=== PATIENT | female | born 1970 | race Caucasian/White ===

== ENCOUNTER 2016-11-08 13:40 | Emergency (ER) | payer SELFPAY ==
[~2016-11-08 13:40] MED LIST: LEVAQUIN 750MG750 M1 PO; PREDNISONE10 MG PO
[2016-11-08] MEDS ORDERED: ADVIL 200MG TA200 MG PO (13:41)
[2016-11-08] MEDS ORDERED: GUAIFEN/CODEIN120 ML PO (16:18)
[2016-11-08] MEDS ORDERED: PREDNISONE20 M1 PO (16:18)
[2016-11-08] MEDS ORDERED: COMBIVENT RESPI1 SPR IH (16:18)
[2016-11-08] MEDS ORDERED: IPRATROPIUM BROM3 M1 IH (16:18)
[2016-11-08] MEDS ORDERED: DOXYCYCLINE MO100 M1 PO (16:18)
== END 2016-11-08 16:45 | disposition home or self-care (01) ==
LOC: ED 13:40
DX: J44.1 Chronic obstructive pulmonary disease with (acute) exacerbation (principal); F17.210 Nicotine dependence, cigarettes, uncomplicated; F12.10 Cannabis abuse, uncomplicated
CPT/HCPCS: J7512

== ENCOUNTER 2017-06-07 06:57 | Emergency (ER) | payer SELFPAY ==
[~2017-06-07] VITALS: Ht 154.9 cm; Wt 109.1 kg
[~2017-06-07 06:57] MED LIST changes: +ADVIL 200MG TA200 MG PO; +COMBIVENT RESPI1 SPR IH; +DOXYCYCLINE MO100 M1 PO; +GUAIFEN/CODEIN120 ML PO; +IPRATROPIUM BROM3 M1 IH; +PREDNISONE20 M1 PO
[2017-06-07 08:30] VITALS: BP 157/96
== END 2017-06-07 08:40 | disposition home or self-care (01) ==
LOC: ED 06:57
DX: J30.2 Other seasonal allergic rhinitis (principal); R06.2 Wheezing; H61.22 Impacted cerumen, left ear; J44.9 Chronic obstructive pulmonary disease, unspecified; F17.200 Nicotine dependence, unspecified, uncomplicated

== ENCOUNTER 2017-12-11 09:15 | Emergency (ER) | payer SELFPAY ==
[2017-12-11 09:55] LABS: EOS # 0.2 (0.04-0.40); EOS % 2.5 % (1.0-5.0); HEMATOCRIT 43.5 % (37.0-47.0); HEMOGLOBIN 13.9 g/dL (12.5-16.0); LYMPH# 1.5 (1.50-4.00); MEAN CELL VOLUME 94 fl (78-100); MEAN CORPUSCULAR HEMOGLOBIN 30 pg (27-31); MEAN CORPUSCULAR HGB CONC 32 g/dL (33-37); MEAN PLATELET VOLUME 10.6 fl (7.4-10.4); MONO # 0.5 (0.20-0.80); NEU # 5.5 (1.40-6.50); PLATELET COUNT 176 K/mm3 (130-400); RED BLOOD COUNT 4.61 M/mm3 (4.10-5.30); RED CELL DISTRIBUTION WIDTH 13.1 % (11.5-14.5); WHITE BLOOD COUNT 7.7 K/mm3 (4.8-10.8)
[2017-12-11 10:06] LABS: BUN/CREATININE RATIO 20.7 (6.0-26.0); CALCIUM 9.2 mg/dL (8.4-10.2)
[2017-12-11 10:15] LABS: URINE APPEARANCE CLEAR; URINE COLOR YELLOW; URINE PROTEIN(semi-quant) TRACE mg/dL (NEGATIVE)
[2017-12-11 10:16] LABS: URINE BILIRUBIN NEGATIVE (NEGATIVE); URINE BLOOD 50 ery/uL (NEGATIVE); URINE GLUCOSE NEGATIVE (NEGATIVE); URINE KETONE NEGATIVE (NEGATIVE); URINE LEUKOCYTE ESTERASE TRACE (NEGATIVE); URINE NITRATE NEGATIVE (NEGATIVE); URINE UROBILINOGEN NORMAL (NORMAL)
[2017-12-11] MEDS ORDERED: AMOXIL500 M1 PO (12:28)
[2017-12-11] MEDS ORDERED: LISINOPRIL20 MG PO (12:28)
[2017-12-11] MEDS ORDERED: GLUCOPHAGE PO (12:28)
[2017-12-11 12:47] VITALS: BP 170/109
== END 2017-12-11 12:40 | disposition home or self-care (01) ==
LOC: ED 09:15
PROVIDERS: Family Medicine
DX: R10.9 Unspecified abdominal pain (principal); M54.89 Other dorsalgia; E11.9 Type 2 diabetes mellitus without complications; I10 Essential (primary) hypertension; E66.01 Morbid (severe) obesity due to excess calories; Z71.3 Dietary counseling and surveillance; Z87.442 Personal history of urinary calculi
CPT/HCPCS: J0595; J2405

== ENCOUNTER 2018-12-31 18:50 | Emergency (ER) | payer SELFPAY ==
[~2018-12-31] VITALS: Ht 154.9 cm; Wt 127.3 kg
[~2018-12-31 18:50] MED LIST changes: +AMOXIL500 M1 PO; +GLUCOPHAGE PO; +LISINOPRIL20 MG PO
[2018-12-31 19:34] LABS: HEMATOCRIT 43.6 % (37.0-47.0); HEMOGLOBIN 13.7 g/dL (12.5-16.0); MEAN CELL VOLUME 93 fl (78-100); MEAN CORPUSCULAR HEMOGLOBIN 29 pg (27-31); MEAN CORPUSCULAR HGB CONC 31 g/dL (33-37); MEAN PLATELET VOLUME 10.8 fl (7.4-10.4); PLATELET COUNT 201 K/mm3 (130-400); RED BLOOD COUNT 4.68 M/mm3 (4.10-5.30); RED CELL DISTRIBUTION WIDTH 13.4 % (11.5-14.5); WHITE BLOOD COUNT 10.6 K/mm3 (4.8-10.8)
[2018-12-31 19:41] LABS: LYMPHOCYTE 14 % (20-51); MONOCYTE 7 % (3-10); NEUTROPHILS 77 % (42-75)
[2018-12-31] MEDS ORDERED: IPRATROPIUM BROM3 M1 IH (20:08)
[2018-12-31] MEDS ORDERED: MORGIDOX 1X100100 MG PO (20:08)
[2018-12-31] MEDS ORDERED: GUAIFEN-CODEINE5 ML PO (20:08)
[2018-12-31] MEDS ORDERED: PREDNISONE20 M1 PO (20:08)
[2018-12-31 20:23] VITALS: BP 136/76
== END 2018-12-31 20:23 | disposition home or self-care (01) ==
LOC: ED 18:50
PROVIDERS: Family Medicine
DX: J45.909 Unspecified asthma, uncomplicated (principal); E11.9 Type 2 diabetes mellitus without complications; F17.210 Nicotine dependence, cigarettes, uncomplicated; Z98.51 Tubal ligation status
CPT/HCPCS: J7512

== ENCOUNTER 2020-02-01 10:38 | Emergency (ER) | payer SELFPAY ==
[~2020-02-01] VITALS: Wt 136.5 kg
[~2020-02-01 10:38] MED LIST changes: +GUAIFEN-CODEINE5 ML PO; +MORGIDOX 1X100100 MG PO
[2020-02-01] MEDS ORDERED: ASPIRIN ADULT L81 M3 PO (11:17)
[2020-02-01] MEDS ORDERED: HYDROCHLOROTHIA1 T14 PO (11:17)
[2020-02-01] MEDS ORDERED: SIMVASTATIN20 M1 PO (11:17)
[2020-02-01 11:55] LABS: EOS # 0.2 (0.04-0.40); EOS % 2.5 % (1.0-5.0); HEMATOCRIT 45.5 % (37.0-47.0); HEMOGLOBIN 14.6 g/dL (12.5-16.0); LYMPH# 1.9 (1.50-4.00); MEAN CELL VOLUME 94 fl (78-100); MEAN CORPUSCULAR HEMOGLOBIN 30 pg (27-31); MEAN CORPUSCULAR HGB CONC 32 g/dL (33-37); MEAN PLATELET VOLUME 10.6 fl (7.4-10.4); MONO # 0.6 (0.20-0.80); NEU # 4.2 (1.40-6.50); PLATELET COUNT 226 K/mm3 (130-400); RED BLOOD COUNT 4.84 M/mm3 (4.10-5.30); WHITE BLOOD COUNT 6.8 K/mm3 (4.8-10.8)
[2020-02-01 12:06] LABS: ALBUMIN 3.7 g/dL (3.5-5.0); POTASSIUM 4.3 mmol/L (3.5-5.1)
[2020-02-01 12:07] LABS: CALCIUM 10.4 mg/dL (8.3-10.5)
[2020-02-01 12:09] LABS: TOTAL PROTEIN 7.2 g/dL (6.4-8.3)
[2020-02-01 12:10] LABS: TOTAL BILIRUBIN 0.5 mg/dL (0.2-1.2)
[2020-02-01 12:21] LABS: TROPONIN-I 0.04 ng/mL (<0.030)
[2020-02-01 12:38] LABS: D-DIMER 0.33 mg/L FEU (0.15-0.50)
[2020-02-01 13:49] LABS: URINE APPEARANCE CLOUDY; URINE BILIRUBIN NEGATIVE (NEGATIVE); URINE BLOOD TRACE (NEGATIVE); URINE COLOR YELLOW; URINE KETONE NEGATIVE (NEGATIVE); URINE LEUKOCYTE ESTERASE NEGATIVE (NEGATIVE); URINE NITRATE NEGATIVE (NEGATIVE); URINE PROTEIN(semi-quant) TRACE mg/dL (NEGATIVE); URINE UROBILINOGEN NORMAL (NORMAL)
[2020-02-01 19:05] VITALS: BP 118/71
== END 2020-02-01 19:00 | disposition short-term general hospital (02) ==
LOC: ED 10:38
PROVIDERS: Nurse Practitioner
DX: J44.1 Chronic obstructive pulmonary disease with (acute) exacerbation (principal); R07.89 Other chest pain; M79.602 Pain in left arm; R51 Headache; E10.9 Type 1 diabetes mellitus without complications; F17.210 Nicotine dependence, cigarettes, uncomplicated; Z79.82 Long term (current) use of aspirin
CPT/HCPCS: J1885; J2930; J7030

== ENCOUNTER 2022-04-07 15:56 | Emergency (ER) | payer SELFPAY ==
[~2022-04-07] VITALS: Ht 154.9 cm; Wt 137.1 kg
[~2022-04-07 15:56] MED LIST changes: +ASPIRIN ADULT L81 M3 PO; +HYDROCHLOROTHIA1 T14 PO; +SIMVASTATIN20 M1 PO
[2022-04-07 16:37] LABS: BASO # 0.02 K/mm3 (0.02-0.10); EOS # 0.13 K/mm3 (0.04-0.40); EOS % 1.7 % (1.0-5.0); HEMATOCRIT 46.1 % (37.0-47.0); HEMOGLOBIN 13.9 g/dL (12.5-16.0); MEAN CELL VOLUME 102 fl (78-100); MEAN CORPUSCULAR HEMOGLOBIN 31 pg (27-31); MEAN CORPUSCULAR HGB CONC 30 g/dL (33-37); MEAN PLATELET VOLUME 9.8 fl (7.4-10.4); MONO # 0.64 K/mm3 (0.20-0.80); NEU # 5.79 K/mm3 (1.40-6.50); PLATELET COUNT 221 K/mm3 (130-400); RED BLOOD COUNT 4.54 M/mm3 (4.10-5.30); RED CELL DISTRIBUTION WIDTH 13.3 % (11.5-14.5); WHITE BLOOD COUNT 7.6 K/mm3 (4.8-10.8)
[2022-04-07 16:51] LABS: ALBUMIN 3.7 g/dL (3.5-5.0); SODIUM 142 mmol/L (136-145)
[2022-04-07 16:52] LABS: CALCIUM 9.2 mg/dL (8.3-10.5)
[2022-04-07 16:53] LABS: GLUCOSE 243 mg/dL (65-105); TOTAL PROTEIN 7.6 g/dL (6.4-8.3)
[2022-04-07 16:54] LABS: CARBON DIOXIDE 36 mmol/L (22-29)
[2022-04-07 16:55] LABS: TOTAL BILIRUBIN 0.6 mg/dL (0.2-1.2)
[2022-04-07 16:56] LABS: ALCOHOL IN-HOUSE < 10 mg/dL (<10)
[2022-04-07 16:58] LABS: AST-SGOT 40 U/L (5-34)
[2022-04-07 17:00] LABS: ALT/SGPT 48 U/L (0-55)
[2022-04-07 17:13] LABS: ACETAMINOPHEN < 1 ug/mL; TROPONIN-I < 0.030 ng/mL (<0.030)
[2022-04-07 17:56] LABS: URINE WBC 0 /hpf (0-3)
[2022-04-07 18:21] LABS: URINE APPEARANCE CLEAR; URINE BILIRUBIN NEGATIVE (NEGATIVE); URINE BLOOD TRACE (NEGATIVE); URINE COLOR YELLOW; URINE KETONE NEGATIVE (NEGATIVE); URINE LEUKOCYTE ESTERASE NEGATIVE (NEGATIVE); URINE MUCUS PRESENT (NOT PRESENT); URINE NITRATE NEGATIVE (NEGATIVE); URINE PROTEIN(semi-quant) 3+ (NEGATIVE); URINE UROBILINOGEN NORMAL (NORMAL)
[2022-04-07 20:18] VITALS: BP 122/78
== END 2022-04-07 20:18 | disposition short-term general hospital (02) ==
LOC: ED 15:56
PROVIDERS: Physician Assistant
DX: J44.1 Chronic obstructive pulmonary disease with (acute) exacerbation (principal); J96.92 Respiratory failure, unspecified with hypercapnia; F17.210 Nicotine dependence, cigarettes, uncomplicated; Z20.822 Contact with and (suspected) exposure to COVID-19; Z99.81 Dependence on supplemental oxygen; Z28.310 Unvaccinated for COVID-19
CPT/HCPCS: A4618; A7027; J2930